=== PATIENT | female | born 1975 | race Caucasian/White ===

== ENCOUNTER 2019-02-04 13:09 | Emergency (ER) | payer OTHER ==
[~2019-02-04] VITALS: Ht 157.5 cm; Wt 74.6 kg
[~2019-02-04 13:09] MED LIST: DOXY-214 PO; IBUP-1542 PO; NO MEDS
[2019-02-04 13:19] VITALS: BP 134/64; PULSE 79; RESP 16; Ht 157.5 cm; Wt 74.6 kg
== END 2019-02-04 16:52 | disposition home or self-care (01) ==
LOC: FTE 13:09
DX: S50.12XD Contusion of left forearm, subsequent encounter (principal); W54.0XXD Bitten by dog, subsequent encounter; Z48.01 Encounter for change or removal of surgical wound dressing
CPT/HCPCS: 29125; 73090; Z7502; Z7610